=== PATIENT | female | born 1955 | race Caucasian/White ===

== ENCOUNTER 2016-11-21 17:00 | Emergency (ER) | payer SELFPAY ==
[~2016-11-21] VITALS: Ht 167.6 cm; Wt 68.0 kg
[~2016-11-21 17:00] MED LIST: ALBU0.084
[2016-11-21] MEDS ORDERED: SODIUM CHLORIDE 0.9% 1,000 ML IV ONE (17:30)
[2016-11-21 19:46] LABS: Basophils # (auto) 0 uL; Basophils % (auto) 0.4 % (0.0-2.0); Eosinophils # (auto) 0.2 uL; Eosinophils % (auto) 4.1 % (0.0-7.0); Hematocrit 39.4 % (36.0-46.0); Hemoglobin 13.5 g/dL (12.2-16.2); Lymphocytes # (auto) 2.3 uL; Lymphocytes % (auto) 39.8 % (10.0-50.0); Mean Corpuscular Hemoglobin 33.7 pg (28.0-32.0); Mean Corpuscular Hgb Conc. 34.3 g/dL (32.0-36.0); Mean Corpuscular Volume 98.1 fL (80.0-100.0); Mean Platelet Volume 7.3 fL (7.4-10.4); Monocytes # (auto) 0.6 uL; Monocytes % (auto) 9.4 % (0.0-12.0); Neutrophils # (auto) 2.7 uL; Neutrophils % (auto) 46.3 % (37.0-80.0); Platelet Count (auto) 383 10^3/uL (140-450); Red Cell Distribution Width 13.5 % (11.6-16.0); White Blood Cell 5.9 10^3/uL (4.4-10.8)
[2016-11-21 19:57] LABS: Albumin 3.8 g/dL (3.4-5.0); BUN/Creatinine Ratio 11.4; Bilirubin, Total 0.2 mg/dL (0.2-1.0); Calcium 8.6 mg/dL (8.5-10.1); Potassium 3.6 mmol/L (3.5-5.1); Total Protein 7.1 g/dL (6.4-8.2)
[2016-11-21 21:10] VITALS: BP 126/72
[2016-11-22] MEDS ORDERED: THIAMINE INJ 100 MG, MULTIPLE VITAMIN 10 ML, FOLIC ACID 1 MG, MAGNESIUM SULF SDV 50% 8 ... IV SCH ×5 (12:00)
== END 2016-11-21 21:27 | disposition home or self-care (01) ==
LOC: EDUNIT# 17:00 → ER 17:19
DX: G92 Toxic encephalopathy (principal); R42 Dizziness and giddiness; R51 Headache; F10.120 Alcohol abuse with intoxication, uncomplicated; J45.909 Unspecified asthma, uncomplicated; F17.210 Nicotine dependence, cigarettes, uncomplicated; Z88.0 Allergy status to penicillin; W07.XXXA Fall from chair, initial encounter; Y93.89 Activity, other specified; Y99.8 Other external cause status; Y92.89 Other specified places as the place of occurrence of the external cause
CPT/HCPCS: 36415; 70450; 71020; 72125; 80053; 80320; 85025; 94761; 96365

== ENCOUNTER 2017-06-03 08:25 | Emergency (ER) | payer SELFPAY ==
[~2017-06-03] VITALS: Ht 154.9 cm; Wt 47.2 kg
[2017-06-03 09:43] LABS: Basophils # (auto) 0.1 uL; Eosinophils # (auto) 0.1 uL; Eosinophils % (auto) 1.1 % (0.0-7.0); Lymphocytes # (auto) 1.1 uL; Mean Platelet Volume 7.4 fL (6.9-10.8); Monocytes # (auto) 0.6 uL
[2017-06-03 09:46] LABS: Basophils % (auto) 1.2 % (0.0-2.0); Hematocrit 42.6 % (36.0-46.0); Hemoglobin 14.4 g/dL (12.2-16.2); Lymphocytes % (auto) 22.3 % (10.0-50.0); Mean Corpuscular Hemoglobin 35.7 pg (28.0-32.0); Mean Corpuscular Hgb Conc. 33.9 g/dL (32.0-36.0); Monocytes % (auto) 11.6 % (0.0-12.0); Neutrophils # (auto) 3.1 uL; Neutrophils % (auto) 63.8 % (37.0-80.0); Nucleated Red Blood Cells % 0.2 %; Platelet Count (auto) 259 10^3/uL (140-450); Red Cell Distribution Width 13.1 % (11.8-14.3); White Blood Cell 4.8 10^3/uL (4.4-10.8)
[2017-06-03 09:49] LABS: Mean Corpuscular Volume 104.9 fL (80.0-100.0)
[2017-06-03 10:10] LABS: Albumin 4.2 g/dL (3.4-5.0); Alkaline Phosphatase 139 U/L (45-117); Anion Gap 14 (5-15); Aspartate Aminotransferase 161 U/L (15-37); BUN/Creatinine Ratio 16.7; Bilirubin, Total 1.4 mg/dL (0.2-1.0); Blood Urea Nitrogen 9 mg/dL (7-18); Calcium 9.3 mg/dL (8.5-10.1); Carbon Dioxide 24 mmol/L (21-32); Chloride 100 mmol/L (98-107); GFR African American 147 mL/min; GFR Non-African American 121 mL/min; Glucose 90 mg/dL (74-106); Potassium 3.1 mmol/L (3.5-5.1); Sodium 138 mmol/L (136-145); Total Protein 8.5 g/dL (6.4-8.2)
[2017-06-03] MEDS ORDERED: SODIUM CHLORIDE 0.9% 1,000 ML IV ONE (10:38)
[2017-06-03] MEDS ORDERED: LORazepam 2MG/ML-1ML VIAL IV ONE (10:45)
[2017-06-03] MEDS ORDERED: THIAMINE INJ 100 MG, MULTIPLE VITAMIN 10 ML, FOLIC ACID 1 MG, MAGNESIUM SULF SDV 50% 8 ... IV SCH ×5 (12:00)
[2017-06-03 12:32] LABS: Urine RBC None Seen /hpf (0 - 4)
[2017-06-03 12:46] LABS: Urine Bilirubin Negative (Negative); Urine Blood Negative /uL (Negative); Urine Color Yellow (Yellow); Urine Glucose Normal (Normal); Urine Ketone 1+ (Negative); Urine Mucus FEW (None Seen); Urine Nitrite POSITIVE (Negative); Urine Squamous Epithelial Cell FEW /hpf (<5); Urine Urobilinogen Normal (Negative); Urine pH 6.5 (5.0-8.0)
[2017-06-03 13:48] VITALS: BP 130/76
[2017-06-03] MEDS ORDERED: POTASSIUM CHL 10% (20 MEQ/15ML) 15ml ORAL SOLN PO ONE (14:15)
[2017-06-03] MEDS ORDERED: cefTRIAXone 1GM/10ml IVPUSH 10 ML IV ONE (15:45)
== END 2017-06-03 16:21 | disposition home or self-care (01) ==
LOC: ER 08:25
DX: F10.120 Alcohol abuse with intoxication, uncomplicated (principal); N39.0 Urinary tract infection, site not specified; E46 Unspecified protein-calorie malnutrition; F31.9 Bipolar disorder, unspecified; F42.9 Obsessive-compulsive disorder, unspecified; R94.5 Abnormal results of liver function studies; F17.210 Nicotine dependence, cigarettes, uncomplicated; F41.9 Anxiety disorder, unspecified
CPT/HCPCS: 36415; 71020; 80053; 80307; 80320; 81001; 83735; 84443; 85025; 93005; 96361; 96365; 96366; 96375; 99285; J2060; J3411; J3475; J7030

== ENCOUNTER 2017-10-17 17:28 | Emergency (ER) | payer SELFPAY ==
[~2017-10-17] VITALS: Ht 154.9 cm; Wt 47.2 kg
[2017-10-17 19:43] LABS: Eosinophils # (auto) 0.2 uL; Monocytes # (auto) 0.6 uL; Neutrophils # (auto) 2.9 uL; Red Cell Distribution Width 13.7 % (11.8-14.3)
[2017-10-17 19:45] LABS: Basophils # (auto) 0 uL; Basophils % (auto) 0.6 % (0.0-2.0); Eosinophils % (auto) 3.4 % (0.0-7.0); Hematocrit 41.6 % (36.0-46.0); Hemoglobin 14.3 g/dL (12.2-16.2); Lymphocytes # (auto) 3.2 uL; Mean Corpuscular Hemoglobin 35.6 pg (28.0-32.0); Mean Corpuscular Hgb Conc. 34.4 g/dL (32.0-36.0); Mean Corpuscular Volume 103.4 fL (80.0-100.0); Monocytes % (auto) 8.5 % (0.0-12.0); Neutrophils % (auto) 41.5 % (37.0-80.0); Platelet Count (auto) 364 10^3/uL (140-450); Red Blood Cells 4.02 10^6/uL (4.0-5.20)
[2017-10-17 20:29] LABS: Albumin 3.7 g/dL (3.4-5.0); BUN/Creatinine Ratio 8.8; Calcium 8.7 mg/dL (8.5-10.1); Potassium 3.8 mmol/L (3.5-5.1)
[2017-10-17 20:31] LABS: Bilirubin, Total 0.2 mg/dL (0.2-1.0); Total Protein 8.2 g/dL (6.4-8.2)
[2017-10-17 21:41] VITALS: BP 134/97
[2017-10-17] MEDS ORDERED: BACITRACIN-POLYMYXIN B TOPICAL OINT UD TOP ONE (22:57)
[2017-10-17] MEDS ORDERED: BACITRACIN INJ 50000 UNIT VIAL TOP ONE (23:00)
[2017-10-17] MEDS ORDERED: TETANUS-DIPTH-ACEL PERTUSSIS 0.5ML SYRG IM ONE ×2 (23:00→23:07)
== END 2017-10-17 23:17 | disposition home or self-care (01) ==
LOC: EDBD 17:28 → EDUNIT# 17:28 → ER 17:28
DX: S01.81XA Laceration without foreign body of other part of head, initial encounter (principal); J45.909 Unspecified asthma, uncomplicated; F17.210 Nicotine dependence, cigarettes, uncomplicated; Z88.0 Allergy status to penicillin; W19.XXXA Unspecified fall, initial encounter; Y93.89 Activity, other specified; Y99.8 Other external cause status; Y92.89 Other specified places as the place of occurrence of the external cause
CPT/HCPCS: 12013; 36415; 70450; 71046; 72125; 80053; 80320; 85025; 90471; 90715

== ENCOUNTER 2017-10-24 10:22 | Emergency (ER) | payer MEDICAID ==
[~2017-10-24] VITALS: Ht 154.9 cm; Wt 46.7 kg
[2017-10-24 10:40] VITALS: BP 138/76
== END 2017-10-24 12:32 | disposition home or self-care (01) ==
LOC: ER 10:22
DX: S01.81XD Laceration without foreign body of other part of head, subsequent encounter (principal); F17.210 Nicotine dependence, cigarettes, uncomplicated; J45.909 Unspecified asthma, uncomplicated; Z88.0 Allergy status to penicillin; X58.XXXD Exposure to other specified factors, subsequent encounter

== ENCOUNTER 2018-04-02 23:46 | Emergency (ER) | payer SELFPAY ==
[~2018-04-02] VITALS: Ht 152.4 cm; Wt 59.0 kg
[2018-04-02 23:55] VITALS: BP 129/82
== END 2018-04-03 01:15 | disposition left against medical advice (07) ==
LOC: EDBD 23:46 → ER 23:46
DX: S01.91XA Laceration without foreign body of unspecified part of head, initial encounter (principal); S09.90XA Unspecified injury of head, initial encounter; Z53.21 Procedure and treatment not carried out due to patient leaving prior to being seen by health care provider; W19.XXXA Unspecified fall, initial encounter; Y93.89 Activity, other specified; Y99.8 Other external cause status; Y92.89 Other specified places as the place of occurrence of the external cause
CPT/HCPCS: 70450

== ENCOUNTER 2019-02-05 09:23 | Emergency (ER) | payer SELFPAY ==
[~2019-02-05] VITALS: Ht 154.9 cm; Wt 46.7 kg
[2019-02-05 09:32] VITALS: BP 190/100
== END 2019-02-05 10:39 | disposition home or self-care (01) ==
LOC: ER 09:27
DX: N39.0 Urinary tract infection, site not specified (principal); F17.210 Nicotine dependence, cigarettes, uncomplicated; J45.909 Unspecified asthma, uncomplicated; Z88.0 Allergy status to penicillin
CPT/HCPCS: 81002

== ENCOUNTER 2019-02-26 12:37 | Emergency (ER) | payer SELFPAY ==
[~2019-02-26] VITALS: Ht 154.9 cm; Wt 46.3 kg
[2019-02-26 13:05] VITALS: BP 153/93
[2019-02-26] MEDS ORDERED: diphenhdrAMINE HCL 50 MG/1 ML VL IM ONE (14:45)
[2019-02-26] MEDS ORDERED: EPINEPHrine HCL 1 MG/1 ML AMP SC ONE (14:45)
== END 2019-02-26 15:50 | disposition home or self-care (01) ==
LOC: ER 12:37
DX: T78.40XA Allergy, unspecified, initial encounter (principal); F17.210 Nicotine dependence, cigarettes, uncomplicated; J45.909 Unspecified asthma, uncomplicated; Z88.0 Allergy status to penicillin; X58.XXXA Exposure to other specified factors, initial encounter
CPT/HCPCS: 96372; 99283; J0171; J1200

== ENCOUNTER 2019-08-14 07:37 | Emergency (ER) | payer SELFPAY ==
[~2019-08-14] VITALS: Ht 154.9 cm; Wt 45.4 kg
[2019-08-14] MEDS ORDERED: SODIUM CHLORIDE 0.9% 1,000 ML IVB ONE (08:16)
[2019-08-14] MEDS ORDERED: LORazepam 2MG/ML-1ML VIAL IV ONE (09:00)
[2019-08-14 09:16] LABS: Basophils # (auto) 0.1 uL; Basophils % (auto) 0.9 % (0.0-2.0); Eosinophils # (auto) 0.1 uL; Eosinophils % (auto) 1.5 % (0.0-7.0); Hematocrit 43.2 % (36.0-46.0); Hemoglobin 14.8 g/dL (12.2-16.2); Lymphocytes # (auto) 1.5 uL; Lymphocytes % (auto) 23.5 % (10.0-50.0); Mean Corpuscular Hemoglobin 33.8 pg (28.0-32.0); Mean Corpuscular Hgb Conc. 34.3 g/dL (32.0-36.0); Mean Corpuscular Volume 98.6 fL (80.0-100.0); Monocytes # (auto) 0.7 uL; Monocytes % (auto) 10.8 % (0.0-12.0); Neutrophils % (auto) 63.3 % (37.0-80.0); Nucleated Red Blood Cells % 0.1 %; Platelet Count (auto) 183 10^3/uL (140-450); Red Blood Cells 4.38 10^6/uL (4.0-5.20); Red Cell Distribution Width 12.6 % (11.8-14.3); White Blood Cell 6.3 10^3/uL (4.4-10.8)
[2019-08-14 09:31] LABS: Chloride 100 mmol/L (98-107); Potassium 3.5 mmol/L (3.5-5.1); Sodium 134 mmol/L (136-145)
[2019-08-14 09:32] LABS: INR 0.97 (0.9-1.15); Partial Thromboplastin Time 28.2 sec (23.64-32.05)
[2019-08-14 09:42] LABS: Alanine Aminotransferase 43 U/L (13-56); Albumin 3.7 g/dL (3.4-5.0); Alkaline Phosphatase 109 U/L (45-117); Anion Gap 9 (5-15); Aspartate Aminotransferase 58 U/L (15-37); BUN/Creatinine Ratio 8.5; Bilirubin, Total 1.3 mg/dL (0.2-1.0); Blood Alcohol < 3.0 mg/dL (0-5); Blood Urea Nitrogen 7 mg/dL (7-18); Calcium 9.3 mg/dL (8.5-10.1); Carbon Dioxide 25 mmol/L (21-32); GFR African American 90 mL/min; GFR Non-African American 74 mL/min; Glucose 100 mg/dL (74-106); Total Protein 7.8 g/dL (6.4-8.2)
[2019-08-14 11:11] LABS: Urine Bacteria FEW /hpf (None Seen); Urine Blood TRACE /uL (Negative); Urine Hyaline Cast FEW /lpf (0 - 2); Urine Mucus FEW (None Seen); Urine Specific Gravity 1.018 (1.001-1.035); Urine WBC 416 /hpf (0 - 5)
[2019-08-14 11:24] LABS: Amphetamine Screen, Urine NEGATIVE (NEGATIVE); Barbiturate Scree,Urine NEGATIVE (NEGATIVE); Benzodiazephine Screen, Urine NEGATIVE (NEGATIVE); Cannabinoid Screen, Urine NEGATIVE (NEGATIVE); Cocaine Screen, Urine NEGATIVE (NEGATIVE); Opiate Scree,Urine NEGATIVE (NEGATIVE); Phencyclidine Screen, Urine NEGATIVE (NEGATIVE)
[2019-08-14] MEDS ORDERED: cefTRIAXone 1GM/50ML D5W 50 ML IV ONE (12:15)
[2019-08-14 13:00] VITALS: BP 126/77
== END 2019-08-14 14:04 | disposition home or self-care (01) ==
LOC: ER 07:37
DX: N39.0 Urinary tract infection, site not specified (principal); E03.9 Hypothyroidism, unspecified; J45.909 Unspecified asthma, uncomplicated; F41.1 Generalized anxiety disorder; F17.210 Nicotine dependence, cigarettes, uncomplicated
CPT/HCPCS: 36415; 80053; 80307; 80320; 81001; 83735; 84443; 84484; 85025; 85610; 85730; 93005; 96365; 96375; 99284; J0696; J2060; J7030

== ENCOUNTER → 2019-11-05 | Emergency (ER) | payer SELFPAY ==
[~2019-11-05] VITALS: Ht 154.9 cm; Wt 44.5 kg
[~2019-11-05] MED LIST changes: +SODIUM CHLORIDE 0.9% 1,000 ML IV ONE
[2019-11-05 14:24] LABS: Basophils # (auto) 0 10 ^3/uL (0-0.2); Basophils % (auto) 0.9 % (0.0-2.0); Eosinophils # (auto) 0.1 10 ^3/uL (0-0.8); Eosinophils % (auto) 2.8 % (0.0-7.0); Hematocrit 39.1 % (36.0-46.0); Hemoglobin 13.4 g/dL (12.2-16.2); Lymphocytes # (auto) 2.5 10 ^3/uL (0.4-5.4); Mean Corpuscular Hemoglobin 33.3 pg (28.0-32.0); Mean Corpuscular Hgb Conc. 34.3 g/dL (32.0-36.0); Mean Corpuscular Volume 97.1 fL (80.0-100.0); Monocytes # (auto) 0.5 10 ^3/uL (0-1.3); Monocytes % (auto) 9.5 % (0.0-12.0); Neutrophils # (auto) 1.7 10 ^3/uL (1.6-8.6); Neutrophils % (auto) 34.8 % (37.0-80.0); Nucleated Red Blood Cells % 0.1 %; Platelet Count (auto) 274 10^3/uL (140-450); Red Blood Cells 4.03 10^6/uL (4.0-5.20); Red Cell Distribution Width 15.5 % (11.8-14.3); White Blood Cell 4.8 10^3/uL (4.4-10.8)
[2019-11-05 14:44] LABS: Albumin 3.6 g/dL (3.4-5.0); Anion Gap 10 (5-15); Blood Urea Nitrogen 4 mg/dL (7-18); Calcium 8.2 mg/dL (8.5-10.1); Carbon Dioxide 22 mmol/L (21-32); Chloride 99 mmol/L (98-107); Glucose 78 mg/dL (74-106); Potassium 3.8 mmol/L (3.5-5.1); Sodium 131 mmol/L (136-145)
[2019-11-05 14:52] LABS: Alanine Aminotransferase 48 U/L (13-56); Alkaline Phosphatase 93 U/L (45-117); Aspartate Aminotransferase 57 U/L (15-37); BUN/Creatinine Ratio 8.5; Bilirubin, Total 0.3 mg/dL (0.2-1.0); GFR African American 171 mL/min; GFR Non-African American 141 mL/min; Total Protein 7.3 g/dL (6.4-8.2)
[2019-11-05 15:43] LABS: Urine Bacteria NONE SEEN /hpf (None Seen); Urine Blood Negative /uL (Negative); Urine Specific Gravity 1.003 (1.001-1.035)
[2019-11-05 15:47] LABS: Urine WBC 2 /hpf (0 - 5)
[2019-11-05 16:00] VITALS: BP 125/65
== END | disposition home or self-care (01) ==
LOC: ER 13:37
DX: F10.230 Alcohol dependence with withdrawal, uncomplicated (principal); F32.9 Major depressive disorder, single episode, unspecified; F41.9 Anxiety disorder, unspecified; F17.210 Nicotine dependence, cigarettes, uncomplicated
CPT/HCPCS: 36415; 71046; 80053; 80320; 81001; 83735; 84443; 84484; 85025; 93005

== ENCOUNTER 2019-11-13 14:20 | Emergency (ER) | payer SELFPAY ==
[~2019-11-13] VITALS: Ht 154.9 cm; Wt 45.4 kg
[~2019-11-13 14:20] MED LIST changes: -SODIUM CHLORIDE 0.9% 1,000 ML IV ONE
[2019-11-13 15:22] LABS: Basophils # (auto) 0 10 ^3/uL (0-0.2); Basophils % (auto) 0.9 % (0.0-2.0); Eosinophils # (auto) 0.1 10 ^3/uL (0-0.8); Eosinophils % (auto) 1.4 % (0.0-7.0); Hematocrit 39.6 % (36.0-46.0); Hemoglobin 13.4 g/dL (12.2-16.2); Lymphocytes # (auto) 1.6 10 ^3/uL (0.4-5.4); Lymphocytes % (auto) 30.9 % (10.0-50.0); Mean Corpuscular Hgb Conc. 33.8 g/dL (32.0-36.0); Mean Corpuscular Volume 97.7 fL (80.0-100.0); Monocytes # (auto) 0.6 10 ^3/uL (0-1.3); Monocytes % (auto) 11.6 % (0.0-12.0); Neutrophils # (auto) 2.9 10 ^3/uL (1.6-8.6); Neutrophils % (auto) 55.2 % (37.0-80.0); Nucleated Red Blood Cells % 0.1 %; Platelet Count (auto) 283 10^3/uL (140-450); Red Blood Cells 4.06 10^6/uL (4.0-5.20); Red Cell Distribution Width 14.3 % (11.8-14.3); White Blood Cell 5.3 10^3/uL (4.4-10.8)
[2019-11-13 15:48] LABS: Albumin 3.8 g/dL (3.4-5.0); Calcium 8.7 mg/dL (8.5-10.1); Magnesium 2.6 mg/dL (1.6-2.6); Potassium 3.6 mmol/L (3.5-5.1)
[2019-11-13 15:52] LABS: BUN/Creatinine Ratio 7.6; Bilirubin, Total 0.5 mg/dL (0.2-1.0); Total Protein 7.9 g/dL (6.4-8.2)
[2019-11-13] MEDS ORDERED: LORazepam 2MG/ML-1ML VIAL IV ONE (18:45)
[2019-11-13] MEDS ORDERED: FOLIC ACID 1 MG, MULTIPLE VITAMIN 10 ML, MAGNESIUM SULF SDV 50% 8 MEQ, THIAMINE INJ 100... INJ ONE ×5 (18:45)
[2019-11-13 20:07] LABS: Urine Bacteria MOD /hpf (None Seen); Urine Blood Negative /uL (Negative); Urine Specific Gravity 1.003 (1.001-1.035); Urine WBC 7 /hpf (0 - 5)
[2019-11-13 22:54] VITALS: BP 156/88
== END 2019-11-14 00:24 | disposition home or self-care (01) ==
LOC: ER 14:20
DX: F10.239 Alcohol dependence with withdrawal, unspecified (principal); F10.229 Alcohol dependence with intoxication, unspecified; F41.8 Other specified anxiety disorders; Y90.9 Presence of alcohol in blood, level not specified
CPT/HCPCS: 36415; 80053; 80320; 81001; 83735; 85025; 96365; 96366; 96375; 99284; J2060; J3411; J3475; J7030

== ENCOUNTER 2019-11-29 21:12 | Emergency (ER) | payer MEDICAID ==
[~2019-11-29] VITALS: Ht 154.9 cm; Wt 43.1 kg
[2019-11-29 22:08] LABS: Basophils # (auto) 0.1 10 ^3/uL (0-0.2); Basophils % (auto) 1.9 % (0.0-2.0); Eosinophils # (auto) 0.2 10 ^3/uL (0-0.8); Eosinophils % (auto) 4.4 % (0.0-7.0); Hematocrit 41.3 % (36.0-46.0); Hemoglobin 14.1 g/dL (12.2-16.2); Lymphocytes # (auto) 2.3 10 ^3/uL (0.4-5.4); Lymphocytes % (auto) 42.4 % (10.0-50.0); Mean Corpuscular Hemoglobin 33.4 pg (28.0-32.0); Mean Corpuscular Hgb Conc. 34.2 g/dL (32.0-36.0); Mean Corpuscular Volume 97.9 fL (80.0-100.0); Monocytes # (auto) 0.5 10 ^3/uL (0-1.3); Monocytes % (auto) 8.5 % (0.0-12.0); Neutrophils # (auto) 2.3 10 ^3/uL (1.6-8.6); Neutrophils % (auto) 42.8 % (37.0-80.0); Nucleated Red Blood Cells % 0.1 %; Platelet Count (auto) 361 10^3/uL (140-450); Red Blood Cells 4.21 10^6/uL (4.0-5.20); Red Cell Distribution Width 14.8 % (11.8-14.3); White Blood Cell 5.4 10^3/uL (4.4-10.8)
[2019-11-29] MEDS ORDERED: THIAMINE 100mg/ml INJ (200mg/2ml VIAL) IV ONE (22:15)
[2019-11-29] MEDS ORDERED: FOLIC ACID 1 MG TAB PO ONE (22:15)
[2019-11-29] MEDS ORDERED: MULTIPLE VITAMIN TAB PO ONE (22:15)
[2019-11-29] MEDS ORDERED: SODIUM CHLORIDE 0.9% 1,000 ML IV ONE (22:15)
[2019-11-29 22:23] LABS: Calcium 8.2 mg/dL (8.5-10.1); Magnesium 2.5 mg/dL (1.6-2.6); Potassium 3.7 mmol/L (3.5-5.1)
[2019-11-29 22:24] LABS: Salicylate 3.8 mg/dL (2.8-20.0)
[2019-11-29 22:25] LABS: Acetaminophen < 2.0 ug/mL (10-30)
[2019-11-29 22:27] LABS: BUN/Creatinine Ratio 5.6; Bilirubin, Total 0.3 mg/dL (0.2-1.0); Total Protein 7.9 g/dL (6.4-8.2)
[2019-11-30 05:47] LABS: Urine Bacteria MANY /hpf (None Seen); Urine Blood Negative /uL (Negative); Urine Specific Gravity 1.002 (1.001-1.035); Urine WBC 30 /hpf (0 - 5)
[2019-11-30 06:25] LABS: Amphetamine Screen, Urine NEGATIVE (NEGATIVE); Barbiturate Scree,Urine NEGATIVE (NEGATIVE); Benzodiazephine Screen, Urine POSITIVE (NEGATIVE); Cannabinoid Screen, Urine NEGATIVE (NEGATIVE); Cocaine Screen, Urine NEGATIVE (NEGATIVE); Opiate Scree,Urine NEGATIVE (NEGATIVE); Phencyclidine Screen, Urine NEGATIVE (NEGATIVE)
[2019-11-30] MEDS ORDERED: SODIUM CHLORIDE 0.9% 1,000 ML IV ONE (09:30)
[2019-11-30] MEDS ORDERED: LORazepam 2MG/ML-1ML VIAL IV ONE (10:30)
[2019-11-30] MEDS ORDERED: cefTRIAXone 1GM/50ML D5W 50 ML IV ONE (10:30)
[2019-11-30 12:00] VITALS: BP 162/82
== END 2019-11-30 11:58 | disposition home or self-care (01) ==
LOC: ER 21:12
DX: F10.239 Alcohol dependence with withdrawal, unspecified (principal); N39.0 Urinary tract infection, site not specified; R74.8 Abnormal levels of other serum enzymes; J45.909 Unspecified asthma, uncomplicated; F17.210 Nicotine dependence, cigarettes, uncomplicated; Z88.2 Allergy status to sulfonamides; Z88.0 Allergy status to penicillin; Y90.9 Presence of alcohol in blood, level not specified
CPT/HCPCS: 36415; 80053; 80307; 80320; 80329; 81001; 83735; 85025; 96365; 96375; 99284; J0696; J2060; J3411

== ENCOUNTER 2020-02-05 15:55 | Emergency (ER) | payer MEDICAID ==
[~2020-02-05] VITALS: Ht 154.9 cm; Wt 40.4 kg
[2020-02-05] MEDS ORDERED: methylPREDNISolone SOD SUCC 125 MG/2 ML VL IM ONE (16:30)
[2020-02-05 16:43] VITALS: BP 136/79
== END 2020-02-05 16:46 | disposition home or self-care (01) ==
LOC: ER 15:55
DX: S60.461A Insect bite (nonvenomous) of left index finger, initial encounter (principal); J45.909 Unspecified asthma, uncomplicated; F17.210 Nicotine dependence, cigarettes, uncomplicated; Z88.0 Allergy status to penicillin; W57.XXXA Bitten or stung by nonvenomous insect and other nonvenomous arthropods, initial encounter; Y93.89 Activity, other specified; Y99.8 Other external cause status
CPT/HCPCS: 96372; 99283; J2930

== ENCOUNTER 2022-12-03 18:19 | Inpatient (IN) | payer MEDICAID ==
[~2022-12-03] VITALS: Ht 154.9 cm; Wt 54.0 kg
[2022-12-04] VITALS (68 sets, daily range): BP systolic 121–161; BP diastolic 53–86
[2022-12-04 00:27] LABS: Basophils # (auto) 0.1 10 ^3/uL (0-0.2); Lymphocytes # (auto) 2.2 10 ^3/uL (0.4-5.4); Red Blood Cells 1.83 10^6/uL (4.0-5.20)
[2022-12-04 00:29] LABS: Basophils % (auto) 0.8 % (0.0-2.0); Eosinophils # (auto) 0 10 ^3/uL (0-0.8); Eosinophils % (auto) 0.3 % (0.0-7.0); Hematocrit 15.5 % (36.0-46.0); Mean Corpuscular Hemoglobin 28.7 pg (28.0-32.0); Mean Corpuscular Hgb Conc. 33.9 g/dL (32.0-36.0); Mean Corpuscular Volume 84.5 fL (80.0-100.0); Monocytes # (auto) 1.3 10 ^3/uL (0-1.3); Neutrophils # (auto) 6.9 10 ^3/uL (1.6-8.6); Neutrophils % (auto) 65.9 % (37.0-80.0); Red Cell Distribution Width 16.3 % (11.8-14.3); White Blood Cell 10.4 10^3/uL (4.4-10.8)
[2022-12-04 00:37] LABS: Hemoglobin 5.3 g/dL (12.2-16.2)
[2022-12-04 00:44] LABS: INR 0.97 (0.9-1.15); Partial Thromboplastin Time 27.6 sec (24.6-33.4)
[2022-12-04 00:46] LABS: Albumin 2.7 g/dL (3.4-5.0); BUN/Creatinine Ratio 22.7 (10.0-20.0); Calcium 8.4 mg/dL (8.5-10.1); Magnesium 1.8 mg/dL (1.6-2.6); Potassium 3.1 mmol/L (3.5-5.1)
[2022-12-04 00:48] LABS: Bilirubin, Total 0.3 mg/dL (0.2-1.0); Total Protein 6.7 g/dL (6.4-8.2)
[2022-12-04] MEDS ORDERED: MORPHINE SULFATE INJ 2 MG/ml SYRG IV PRN (06:00)
[2022-12-04] MEDS ORDERED: SODIUM CHLORIDE 0.9% 1,000 ML IV SCH (06:00)
[2022-12-04] MEDS ORDERED: ATOR-47 PO (06:06)
[2022-12-04] MEDS ORDERED: GABA-339 PO (06:06)
[2022-12-04] MEDS ORDERED: DILT-100 PO (06:06)
[2022-12-04] MEDS ORDERED: BUSP15TA90 PO (06:06)
[2022-12-04] MEDS: POTASSIUM CHL 20MEQ/100ML 100 ML IV SCH ×2 (06:44→08:00)
[2022-12-04 08:11] LABS: Basophils # (auto) 0.1 10 ^3/uL (0-0.2); Eosinophils # (auto) 0.1 10 ^3/uL (0-0.8); Lymphocytes # (auto) 1.3 10 ^3/uL (0.4-5.4); Monocytes # (auto) 1.3 10 ^3/uL (0-1.3); Neutrophils # (auto) 6.1 10 ^3/uL (1.6-8.6); White Blood Cell 8.8 10^3/uL (4.4-10.8)
[2022-12-04 08:13] LABS: Basophils % (auto) 0.7 % (0.0-2.0); Eosinophils % (auto) 0.8 % (0.0-7.0); Hematocrit 20.1 % (36.0-46.0); Lymphocytes % (auto) 14.8 % (10.0-50.0); Mean Corpuscular Hemoglobin 28.6 pg (28.0-32.0); Mean Corpuscular Hgb Conc. 33.7 g/dL (32.0-36.0); Mean Corpuscular Volume 84.6 fL (80.0-100.0); Monocytes % (auto) 14.7 % (0.0-12.0); Nucleated Red Blood Cells % 0.1 %; Red Blood Cells 2.37 10^6/uL (4.0-5.20); Red Cell Distribution Width 16.1 % (11.8-14.3)
[2022-12-04 08:20] LABS: Hemoglobin 6.8 g/dL (12.2-16.2)
[2022-12-04] MEDS: busPIRone HCL 10 MG TAB PO SCH (10:00)
[2022-12-04] MEDS: GABAPENTIN 300 MG CAP PO SCH (10:00)
[2022-12-04] MEDS: dilTIAZem 120MG ER CAP PO SCH (10:00)
[2022-12-04] MEDS ORDERED: ENOXAPARIN SOD 40 MG/0.4 ML SYRINGE SC SCH (10:00)
[2022-12-04] MEDS ORDERED: D5W 5% 1,000 ML IV SCH (13:15)
[2022-12-04] MEDS: D5W/SOD CHLO 0.9% 1,000 ML IV SCH (13:30)
[2022-12-04] MEDS: PANTOPRAZOLE 40mg/50ML NS AE 50 ML IV SCH ×3 (13:43→21:21)
[2022-12-04] MEDS ORDERED: PANT40TA2 PO (14:02)
[2022-12-04] MEDS ORDERED: POTA10TA51 PO (14:02)
[2022-12-04] MEDS ORDERED: TICA90TA PO (14:02)
[2022-12-04] MEDS ORDERED: ASPI-543 PO (14:02)
[2022-12-04] MEDS ORDERED: FURO40TA4 PO (14:02)
[2022-12-04] MEDS ORDERED: METO25TA5 PO (14:02)
[2022-12-04 19:26] LABS: Eosinophils # (auto) 0.1 10 ^3/uL (0-0.8); Hemoglobin 8.5 g/dL (12.2-16.2); Lymphocytes % (auto) 17.7 % (10.0-50.0); Red Cell Distribution Width 15.1 % (11.8-14.3)
[2022-12-04 19:28] LABS: Basophils # (auto) 0 10 ^3/uL (0-0.2); Basophils % (auto) 0.6 % (0.0-2.0); Eosinophils % (auto) 1.1 % (0.0-7.0); Hematocrit 24.4 % (36.0-46.0); Lymphocytes # (auto) 1.6 10 ^3/uL (0.4-5.4); Mean Corpuscular Hemoglobin 29.9 pg (28.0-32.0); Mean Corpuscular Hgb Conc. 34.6 g/dL (32.0-36.0); Mean Corpuscular Volume 86.5 fL (80.0-100.0); Monocytes # (auto) 1.3 10 ^3/uL (0-1.3); Monocytes % (auto) 15.2 % (0.0-12.0); Neutrophils # (auto) 5.8 10 ^3/uL (1.6-8.6); Neutrophils % (auto) 65.4 % (37.0-80.0); Nucleated Red Blood Cells % 0.1 %; Red Blood Cells 2.82 10^6/uL (4.0-5.20); White Blood Cell 8.8 10^3/uL (4.4-10.8)
[2022-12-05] VITALS (82 sets, daily range): BP systolic 118–173; BP diastolic 41–91
[2022-12-05] MEDS: PANTOPRAZOLE 40mg/50ML NS AE 50 ML IV SCH ×4 (03:04→17:35)
[2022-12-05 05:15] LABS: Eosinophils # (auto) 0.2 10 ^3/uL (0-0.8); Eosinophils % (auto) 2.3 % (0.0-7.0); Lymphocytes # (auto) 1.3 10 ^3/uL (0.4-5.4); Neutrophils # (auto) 5.3 10 ^3/uL (1.6-8.6); Nucleated Red Blood Cells % 0.1 %; White Blood Cell 8.1 10^3/uL (4.4-10.8)
[2022-12-05 05:17] LABS: Basophils # (auto) 0.1 10 ^3/uL (0-0.2); Basophils % (auto) 0.7 % (0.0-2.0); Hematocrit 22.4 % (36.0-46.0); Hemoglobin 7.8 g/dL (12.2-16.2); Lymphocytes % (auto) 15.5 % (10.0-50.0); Mean Corpuscular Hemoglobin 30.1 pg (28.0-32.0); Mean Corpuscular Hgb Conc. 34.9 g/dL (32.0-36.0); Mean Corpuscular Volume 86.3 fL (80.0-100.0); Monocytes # (auto) 1.3 10 ^3/uL (0-1.3); Neutrophils % (auto) 65.5 % (37.0-80.0); Red Cell Distribution Width 15.1 % (11.8-14.3)
[2022-12-05 05:24] LABS: Albumin 2.5 g/dL (3.4-5.0); Calcium 8.3 mg/dL (8.5-10.1); Magnesium 2.4 mg/dL (1.6-2.6); Potassium 3.1 mmol/L (3.5-5.1)
[2022-12-05 05:29] LABS: BUN/Creatinine Ratio 23.4 (10.0-20.0); Bilirubin, Total 0.6 mg/dL (0.2-1.0); Total Protein 5.8 g/dL (6.4-8.2)
[2022-12-05] MEDS: D5W/SOD CHLO 0.9% 1,000 ML IV SCH (06:05)
[2022-12-05] MEDS: GABAPENTIN 300 MG CAP PO SCH (07:22)
[2022-12-05] MEDS: dilTIAZem 120MG ER CAP PO SCH (07:22)
[2022-12-05] MEDS: busPIRone HCL 10 MG TAB PO SCH (07:22)
[2022-12-05] MEDS ORDERED: POTASSIUM CHL 20 Meq TABLET PO ONE (09:30)
[2022-12-05] MEDS ORDERED: POTASSIUM CHL 20MEQ/100ML 100 ML IV ONE (09:30)
[2022-12-05] MEDS ORDERED: ENOXAPARIN SOD 30 MG/0.3 ML SYRINGE SC SCH (10:00)
[2022-12-05 12:55] LABS: Hemoglobin 7.8 g/dL (12.2-16.2)
[2022-12-05] MEDS: SODIUM FERR GLUC 62.5MG/5ML 125 MG in SODIUM CHL 0.9% 100 ML IV SCH (14:48)
[2022-12-05] MEDS ORDERED: BISACODYL 10 MG RECT SUPP PR ONE ×2 (16:00→17:30)
[2022-12-05 21:51] LABS: Hematocrit 24.7 % (36.0-46.0)
[2022-12-06] VITALS (28 sets, daily range): BP systolic 110–156; BP diastolic 44–71
[2022-12-06] MEDS: PANTOPRAZOLE 40mg/50ML NS AE 50 ML IV SCH ×5 (00:08→22:38)
[2022-12-06] MEDS: D5W/SOD CHLO 0.9% 1,000 ML IV SCH ×2 (00:09→21:01)
[2022-12-06 05:03] LABS: Basophils # (auto) 0.1 10 ^3/uL (0-0.2); Eosinophils # (auto) 0.3 10 ^3/uL (0-0.8)
[2022-12-06 05:06] LABS: Basophils % (auto) 0.5 % (0.0-2.0); Lymphocytes # (auto) 1.5 10 ^3/uL (0.4-5.4); Lymphocytes % (auto) 15.8 % (10.0-50.0); Mean Corpuscular Hemoglobin 28.9 pg (28.0-32.0); Mean Corpuscular Hgb Conc. 33.3 g/dL (32.0-36.0); Mean Corpuscular Volume 86.9 fL (80.0-100.0); Monocytes # (auto) 1.3 10 ^3/uL (0-1.3); Monocytes % (auto) 13.9 % (0.0-12.0); Neutrophils # (auto) 6.3 10 ^3/uL (1.6-8.6); Neutrophils % (auto) 66.8 % (37.0-80.0); Nucleated Red Blood Cells % 0.1 %; Red Blood Cells 2.42 10^6/uL (4.0-5.20); Red Cell Distribution Width 15.5 % (11.8-14.3); White Blood Cell 9.5 10^3/uL (4.4-10.8)
[2022-12-06 05:17] LABS: Calcium 8.1 mg/dL (8.5-10.1); Potassium 3.9 mmol/L (3.5-5.1)
[2022-12-06 05:20] LABS: Albumin 2.1 g/dL (3.4-5.0); BUN/Creatinine Ratio 12.2 (10.0-20.0); Magnesium 1.8 mg/dL (1.6-2.6)
[2022-12-06 05:23] LABS: Bilirubin, Total 0.4 mg/dL (0.2-1.0); Total Protein 5.5 g/dL (6.4-8.2)
[2022-12-06] MEDS: dilTIAZem 120MG ER CAP PO SCH (07:32)
[2022-12-06] MEDS: GABAPENTIN 300 MG CAP PO SCH (07:32)
[2022-12-06] MEDS: busPIRone HCL 10 MG TAB PO SCH (07:32)
[2022-12-06] MEDS: SODIUM FERR GLUC 62.5MG/5ML 125 MG in SODIUM CHL 0.9% 100 ML IV SCH (12:45)
[2022-12-06] MEDS: METOPROLOL TARTRATE 25 MG TAB PO SCH ×2 (13:05→20:57)
[2022-12-06 17:19] LABS: Hematocrit 24.7 % (36.0-46.0); Hemoglobin 8.3 g/dL (12.2-16.2)
[2022-12-07] VITALS (20 sets, daily range): BP systolic 121–145; BP diastolic 46–83
[2022-12-07] MEDS: PANTOPRAZOLE 40mg/50ML NS AE 50 ML IV SCH ×5 (04:02→20:48)
[2022-12-07 05:23] LABS: Albumin 2.2 g/dL (3.4-5.0); Magnesium 1.8 mg/dL (1.6-2.6); Potassium 3.7 mmol/L (3.5-5.1)
[2022-12-07 05:27] LABS: BUN/Creatinine Ratio 9.5 (10.0-20.0); Bilirubin, Total 0.5 mg/dL (0.2-1.0); Total Protein 5.3 g/dL (6.4-8.2)
[2022-12-07 05:39] LABS: Eosinophils # (auto) 0.3 10 ^3/uL (0-0.8); Lymphocytes # (auto) 1.5 10 ^3/uL (0.4-5.4)
[2022-12-07 05:40] LABS: Basophils # (auto) 0.1 10 ^3/uL (0-0.2); Basophils % (auto) 0.6 % (0.0-2.0); Eosinophils % (auto) 3.2 % (0.0-7.0); Lymphocytes % (auto) 16.2 % (10.0-50.0); Mean Corpuscular Hemoglobin 30.1 pg (28.0-32.0); Mean Corpuscular Hgb Conc. 33.6 g/dL (32.0-36.0); Mean Corpuscular Volume 89.5 fL (80.0-100.0); Monocytes # (auto) 1.1 10 ^3/uL (0-1.3); Monocytes % (auto) 12.7 % (0.0-12.0); Neutrophils # (auto) 6.1 10 ^3/uL (1.6-8.6); Neutrophils % (auto) 67.3 % (37.0-80.0); Nucleated Red Blood Cells % 0.1 %; Red Blood Cells 2.68 10^6/uL (4.0-5.20); Red Cell Distribution Width 15.3 % (11.8-14.3)
[2022-12-07] MEDS: METOPROLOL TARTRATE 25 MG TAB PO SCH ×3 (05:57→21:41)
[2022-12-07] MEDS: D5W/SOD CHLO 0.9% 1,000 ML IV SCH ×2 (08:10→16:41)
[2022-12-07] MEDS: dilTIAZem 120MG ER CAP PO SCH (10:37)
[2022-12-07] MEDS: GABAPENTIN 300 MG CAP PO SCH (10:39)
[2022-12-07] MEDS: busPIRone HCL 10 MG TAB PO SCH (11:42)
[2022-12-07] MEDS: SODIUM FERR GLUC 62.5MG/5ML 125 MG in SODIUM CHL 0.9% 100 ML IV SCH (16:08)
[2022-12-08] MEDS: PANTOPRAZOLE 40mg/50ML NS AE 50 ML IV SCH ×4 (02:17→18:19)
[2022-12-08 05:00] VITALS: BP 120/64
[2022-12-08] MEDS: METOPROLOL TARTRATE 25 MG TAB PO SCH ×3 (06:02→21:28)
[2022-12-08 06:07] LABS: Hematocrit 23.6 % (36.0-46.0)
[2022-12-08 09:00] VITALS: BP 118/65
[2022-12-08] MEDS: GABAPENTIN 300 MG CAP PO SCH (10:22)
[2022-12-08] MEDS: dilTIAZem 120MG ER CAP PO SCH (10:22)
[2022-12-08] MEDS: busPIRone HCL 10 MG TAB PO SCH (10:23)
[2022-12-08 13:00] VITALS: BP 118/59
[2022-12-08] MEDS: SODIUM FERR GLUC 62.5MG/5ML 125 MG in SODIUM CHL 0.9% 100 ML IV SCH (13:53)
[2022-12-08] MEDS ORDERED: BISACODYL 10 MG RECT SUPP PR ONE (14:00)
[2022-12-08 17:00] VITALS: BP 116/70
[2022-12-08] MEDS: D5W/SOD CHLO 0.9% 1,000 ML IV SCH (18:20)
[2022-12-08 22:00] VITALS: BP 134/65
[2022-12-08] MEDS ORDERED: SENNA 8.6 MG TAB PO SCH (22:00)
[2022-12-09] MEDS: PANTOPRAZOLE 40mg/50ML NS AE 50 ML IV SCH ×3 (00:02→10:07)
[2022-12-09 05:00] VITALS: BP 140/68
[2022-12-09 05:51] LABS: Hematocrit 24.4 % (36.0-46.0)
[2022-12-09 05:54] LABS: Hemoglobin 8.2 g/dL (12.2-16.2)
[2022-12-09] MEDS: METOPROLOL TARTRATE 25 MG TAB PO SCH ×2 (05:54→14:11)
[2022-12-09 06:15] LABS: BUN/Creatinine Ratio 5.4 (10.0-20.0); Calcium 7.8 mg/dL (8.5-10.1); Potassium 3.4 mmol/L (3.5-5.1)
[2022-12-09 10:07] VITALS: BP 133/48
[2022-12-09] MEDS: dilTIAZem 120MG ER CAP PO SCH (10:09)
[2022-12-09] MEDS: GABAPENTIN 300 MG CAP PO SCH (10:09)
[2022-12-09] MEDS: busPIRone HCL 10 MG TAB PO SCH (10:09)
[2022-12-09] MEDS: D5W/SOD CHLO 0.9% 1,000 ML IV SCH (10:09)
[2022-12-09] MEDS ORDERED: SUCRALFATE 1 GM TAB PO SCH (11:30)
[2022-12-09] MEDS: SODIUM FERR GLUC 62.5MG/5ML 125 MG in SODIUM CHL 0.9% 100 ML IV SCH (12:00)
[2022-12-09] MEDS ORDERED: PANT40TA2 PO (12:13)
[2022-12-09] MEDS ORDERED: METO25TA5 PO (12:13)
[2022-12-09] MEDS ORDERED: SUCR1SUS26 PO (12:13)
[2022-12-09] MEDS ORDERED: POTASSIUM CHL 20 Meq TABLET PO ONE (13:00)
[2022-12-09 14:58] VITALS: BP 134/55
[2022-12-09 16:22] VITALS: BP 128/56
[2022-12-09 17:24] VITALS: BP 133/65
[2022-12-09] MEDS ORDERED: PANTOPRAZOLE 40 MG TAB PO SCH (22:00)
[2022-12-10] MEDS ORDERED: EPINEPHrine HCL 1 MG/10 ML SYRG ONE (00:18)
[2022-12-10] MEDS ORDERED: NOREPINEPHRINE 8 MG/250ML KIT 250 ML IV ONE (00:27)
[2022-12-10] MEDS ORDERED: DOBUTamine 1000MCG/ML 250 ML IV ONE (00:32)
[2022-12-10] MEDS ORDERED: MIDAZOLAM DRIP 50 mg/50mL 50 ML IV ONE (01:20)
[2022-12-10] MEDS ORDERED: POTA-228 PO (09:20)
[2022-12-10] MEDS ORDERED: METO25TA5 PO (09:20)
[2022-12-10] MEDS ORDERED: FURO1TAB31 PO (09:20)
[2022-12-10] MEDS ORDERED: GABA-1250 PO (09:20)
== END 2022-12-09 18:54 | disposition home or self-care (01) | DRG 253 ==
LOC: EDBD 18:19 → ER 18:19 → TELE 12-04 06:00 → DOU IN ICU 12-04 08:16 → TELE-EAST 12-07 18:04
PROVIDERS: ADMIT Internal Medicine; ATTEND Hospitalist
PROC: 30233N1 Transfusion of Nonautologous Red Blood Cells into Peripheral Vein, Percutaneous Approach (ICD-10-PCS; principal; 2022-12-04)
PROC: 05HA33Z Insertion of Infusion Device into Left Brachial Vein, Percutaneous Approach (ICD-10-PCS; 2022-12-04)
PROC: B54NZZA Ultrasonography of Left Upper Extremity Veins, Guidance (ICD-10-PCS; 2022-12-04)
DX: K92.2 Gastrointestinal hemorrhage, unspecified (principal); E83.51 Hypocalcemia; E87.8 Other disorders of electrolyte and fluid balance, not elsewhere classified; E87.1 Hypo-osmolality and hyponatremia; E86.0 Dehydration; I48.91 Unspecified atrial fibrillation; E88.09 Other disorders of plasma-protein metabolism, not elsewhere classified; D64.9 Anemia, unspecified; D75.839 Thrombocytosis, unspecified; E86.1 Hypovolemia; E87.6 Hypokalemia; F32.A Depression, unspecified; F41.9 Anxiety disorder, unspecified; M81.0 Age-related osteoporosis without current pathological fracture; M53.3 Sacrococcygeal disorders, not elsewhere classified; K59.00 Constipation, unspecified; J43.9 Emphysema, unspecified; F17.210 Nicotine dependence, cigarettes, uncomplicated; I25.10 Atherosclerotic heart disease of native coronary artery without angina pectoris; J45.909 Unspecified asthma, uncomplicated; Z95.5 Presence of coronary angioplasty implant and graft; Z88.0 Allergy status to penicillin; Z88.2 Allergy status to sulfonamides
CPT/HCPCS: 36415; 80048; 80053; 82270; 83690; 83735; 83880; 84443; 84484; 85014; 85018; 85025; 85610; 85730; 86850; 86900; 86901; 86920; 87081; 93005; 93306; 97110; 97116; 97163; 97530; 99291; G0378; J3480; J7042

== ENCOUNTER 2022-12-10 00:10 | Inpatient (IN) | payer MEDICAID ==
[~2022-12-10] VITALS: Ht 157.5 cm; Wt 58.0 kg
[2022-12-10] VITALS (91 sets, daily range): BP systolic 76–211; BP diastolic 46–180
[~2022-12-10 00:10] MED LIST changes: +ASPI-543 PO; +ATOR-47 PO; +BUSP15TA90 PO; +DILT-100 PO; +FURO40TA4 PO; +GABA-339 PO; +METO25TA5 PO; +PANT40TA2 PO; +POTA10TA51 PO; +SUCR1SUS26 PO; +TICA90TA PO
[2022-12-10 01:09] LABS: White Blood Cell 9.4 10^3/uL (4.4-10.8)
[2022-12-10 01:10] LABS: Hematocrit 24.8 % (36.0-46.0); Hemoglobin 7.7 g/dL (12.2-16.2); Mean Corpuscular Hemoglobin 30.5 pg (28.0-32.0); Mean Corpuscular Hgb Conc. 31.2 g/dL (32.0-36.0); Mean Corpuscular Volume 97.9 fL (80.0-100.0); Red Blood Cells 2.53 10^6/uL (4.0-5.20); Red Cell Distribution Width 17.3 % (11.8-14.3)
[2022-12-10] MEDS: EPINEPHrine HCL 250 ML IV SCH ×2 (01:12→15:20)
[2022-12-10] MEDS: DOBUTamine 1000MCG/ML 250 ML IV SCH ×2 (01:14→20:57)
[2022-12-10] MEDS: NOREPINEPHRINE 8 MG/250ML KIT 250 ML IV SCH ×2 (01:14→10:38)
[2022-12-10] MEDS ORDERED: ANGIOMAX 250 MG VIAL IV ONE (01:16)
[2022-12-10] MEDS ORDERED: SODIUM CHL 0.9% 50 ML ONE (01:16)
[2022-12-10 01:18] LABS: Basophils % (manual) 0 (0.0-2.0); Blast Cells 0; Eosinophils % (manual) 0 (0-7); Metamyelocytes % 0; Myelocytes % 0; Promyelocytes % 0; Reactive Lymphocytes 0
[2022-12-10] MEDS ORDERED: LIDOCAINE 2%HCL (LOCAL ANESTH.) INJ 20ML MDV ONE (01:20)
[2022-12-10] MEDS ORDERED: IODIXANOL 320MG/ML 100ML BTL IV ONE (01:20)
[2022-12-10 01:21] LABS: Albumin 1.6 g/dL (3.4-5.0); BUN/Creatinine Ratio 10.1 (10.0-20.0); Calcium 10.8 mg/dL (8.5-10.1); Magnesium 2.2 mg/dL (1.6-2.6); Potassium 5.2 mmol/L (3.5-5.1)
[2022-12-10 01:24] LABS: Bilirubin, Total 0.2 mg/dL (0.2-1.0); Total Protein 4.3 g/dL (6.4-8.2)
[2022-12-10] MEDS: MIDAZOLAM DRIP 50 mg/50mL 50 ML IV SCH ×3 (01:30→12:31)
[2022-12-10 01:35] LABS: INR 1.18 (0.9-1.15); Partial Thromboplastin Time 42.7 sec (24.6-33.4)
[2022-12-10 01:52] LABS: Band Neutrophils % (manual) 4; Monocytes % (manual) 8 (0-12)
[2022-12-10 01:53] LABS: Lymphocytes % (manual) 34 (10.0-50.0)
[2022-12-10] MEDS ORDERED: PHENYLEPHRINE IV 250 ML IV ONE (02:04)
[2022-12-10] MEDS ORDERED: VASOPRESSIN 20 UNIT/ML ONE (02:22)
[2022-12-10 02:24] LABS: Alcohol, Urine < 3.0 mg/dL (0-10); Amphetamine Screen, Urine NEGATIVE (NEGATIVE); Barbiturate Scree,Urine NEGATIVE (NEGATIVE); Benzodiazephine Screen, Urine NEGATIVE (NEGATIVE); Cannabinoid Screen, Urine NEGATIVE (NEGATIVE); Cocaine Screen, Urine NEGATIVE (NEGATIVE); Phencyclidine Screen, Urine NEGATIVE (NEGATIVE)
[2022-12-10 02:37] LABS: Urine Bacteria FEW /hpf (None Seen); Urine Blood Negative /uL (Negative); Urine Specific Gravity 1.008 (1.001-1.035); Urine WBC 4 /hpf (0 - 5)
[2022-12-10 02:42] LABS: Opiate Scree,Urine NEGATIVE (NEGATIVE)
[2022-12-10] MEDS ORDERED: MORPHINE SULFATE INJ 2 MG/ml SYRG IV PRN (03:00)
[2022-12-10 04:16] LABS: Basophils # (auto) 0 10 ^3/uL (0-0.2); Eosinophils % (auto) 0.7 % (0.0-7.0); Lymphocytes # (auto) 1.3 10 ^3/uL (0.4-5.4); Monocytes # (auto) 0.2 10 ^3/uL (0-1.3); Monocytes % (auto) 2.2 % (0.0-12.0); Neutrophils # (auto) 6.1 10 ^3/uL (1.6-8.6)
[2022-12-10 04:19] LABS: Basophils % (auto) 0.5 % (0.0-2.0); Eosinophils # (auto) 0.1 10 ^3/uL (0-0.8); Hematocrit 23.6 % (36.0-46.0); Hemoglobin 7.8 g/dL (12.2-16.2); Lymphocytes % (auto) 16.5 % (10.0-50.0); Mean Corpuscular Hemoglobin 30.7 pg (28.0-32.0); Mean Corpuscular Hgb Conc. 33.2 g/dL (32.0-36.0); Mean Corpuscular Volume 92.2 fL (80.0-100.0); Neutrophils % (auto) 80.1 % (37.0-80.0); Nucleated Red Blood Cells % 0.1 %; Red Blood Cells 2.56 10^6/uL (4.0-5.20); Red Cell Distribution Width 16.5 % (11.8-14.3); White Blood Cell 7.6 10^3/uL (4.4-10.8)
[2022-12-10 04:20] LABS: INR 1.99 (0.9-1.15)
[2022-12-10 04:28] LABS: Albumin 1.5 g/dL (3.4-5.0); BUN/Creatinine Ratio 14.4 (10.0-20.0); Calcium 8.3 mg/dL (8.5-10.1); Potassium 4.1 mmol/L (3.5-5.1)
[2022-12-10 04:31] LABS: Bilirubin, Total 0.3 mg/dL (0.2-1.0)
[2022-12-10] MEDS: PHENYLEPHRINE IV 250 ML IV SCH ×4 (04:42→10:36)
[2022-12-10] MEDS ORDERED: SODIUM BICARBONATE 50ML VIAL 100 ML in SOD CHL 0.45% 1,000 ML IV SCH ×2 (06:30→09:45)
[2022-12-10] MEDS ORDERED: SODIUM BICARBONATE 8.4 % INJ 50ML VIAL IV ONE ×4 (06:41→23:30)
[2022-12-10] MEDS ORDERED: POTA-228 PO (09:20)
[2022-12-10] MEDS ORDERED: GABA-1250 PO (09:20)
[2022-12-10] MEDS ORDERED: FURO1TAB31 PO (09:20)
[2022-12-10] MEDS ORDERED: METO25TA5 PO (09:20)
[2022-12-10] MEDS ORDERED: ASPirin 81 mg TAB GT SCH (10:00)
[2022-12-10] MEDS ORDERED: CLOPIDOGREL BISULFATE 75 MG TAB GT SCH (10:00)
[2022-12-10] MEDS ORDERED: CLINIMIX PER PHARMACY 0 ML IV SCH (10:45)
[2022-12-10] MEDS ORDERED: FUROSEMIDE INJECTION 100 MG in D5W 5% 100 ML IV SCH (10:45)
[2022-12-10] MEDS: SUCRALFATE 1 GM/10 ML ORAL SUSP NG SCH ×4 (10:56→23:43)
[2022-12-10 11:10] LABS: Magnesium 2.3 mg/dL (1.6-2.6); Phosphorus 4.5 mg/dL (2.5-4.90)
[2022-12-10] MEDS ORDERED: MAGNESIUM SULFATE 1GM/100ML 100 ML IV ONE (11:15)
[2022-12-10] MEDS: PHENYLEPHRINE INJ 80 MG in SODIUM CHL 0.9% 242 ML IV SCH ×2 (12:32→19:34)
[2022-12-10] MEDS: MEROPENEM 1GM IVPB 100 ML IV SCH (15:20)
[2022-12-10] MEDS: NOREPINEPHRINE BITARTRATE 32 MG in SODIUM CHL 0.9% 218 ML IV SCH (15:22)
[2022-12-10 15:29] LABS: Basophils # (auto) 0 10 ^3/uL (0-0.2); Eosinophils # (auto) 0 10 ^3/uL (0-0.8); Eosinophils % (auto) 0.1 % (0.0-7.0); Hemoglobin 7.3 g/dL (12.2-16.2); Monocytes # (auto) 1.2 10 ^3/uL (0-1.3); Neutrophils # (auto) 7.3 10 ^3/uL (1.6-8.6); Nucleated Red Blood Cells % 0.9 %
[2022-12-10 15:31] LABS: Basophils % (auto) 0.3 % (0.0-2.0); Lymphocytes # (auto) 1.2 10 ^3/uL (0.4-5.4); Lymphocytes % (auto) 12.3 % (10.0-50.0); Mean Corpuscular Hemoglobin 29.3 pg (28.0-32.0); Mean Corpuscular Hgb Conc. 30.3 g/dL (32.0-36.0); Mean Corpuscular Volume 96.8 fL (80.0-100.0); Monocytes % (auto) 12.3 % (0.0-12.0); Red Blood Cells 2.48 10^6/uL (4.0-5.20); Red Cell Distribution Width 16.7 % (11.8-14.3); White Blood Cell 9.7 10^3/uL (4.4-10.8)
[2022-12-10] MEDS ORDERED: PANTOPRAZOLE 40 MG/10 ML VIAL INJ IV ONE (16:15)
[2022-12-10] MEDS ORDERED: SODIUM BICARBONATE 50ML VIAL 150 ML in SOD CHL 0.45% 1,000 ML IV SCH (16:15)
[2022-12-10] MEDS: DOPamine 1600MCG/ML D5W 250 ML IV SCH (16:28)
[2022-12-10] MEDS: PANTOPRAZOLE 40mg/50ML NS AE 50 ML IV SCH ×2 (18:11→22:45)
[2022-12-10] MEDS: VASOPRESSIN 20 UNITS in SODIUM CHL 0.9% 99 ML IV SCH (19:34)
[2022-12-10] MEDS ORDERED: AMINO ACID INFUSION IN D10W 1,000 ML IV NR (20:00)
[2022-12-10] MEDS ORDERED: PANTOPRAZOLE 40 MG/10 ML VIAL INJ IV SCH ×2 (22:00)
[2022-12-10] MEDS ORDERED: DEXTROSE 10% 250 ML IV ONE (23:27)
[2022-12-10] MEDS ORDERED: SODIUM BICARBONATE 8.4% INJ 50ML SYRINGE ONE (23:30)
[2022-12-10] MEDS: InsuLIN REG 1unit/0.01ml Soln (100units/ml) SC SCH (23:42)
[2022-12-10] MEDS: ACCU-CHEK COMFORT CURVE STRIP VI SCH (23:42)
[2022-12-11] VITALS (48 sets, daily range): BP systolic 0–104; BP diastolic 28–75
[2022-12-11] MEDS ORDERED: DEXTROSE (50%) 50ML SYRG IV SCH
[2022-12-11] MEDS: DOPamine 1600MCG/ML D5W 250 ML IV SCH ×2 (00:45→06:33)
[2022-12-11 01:24] LABS: Basophils # (auto) 0 10 ^3/uL (0-0.2); Eosinophils # (auto) 0 10 ^3/uL (0-0.8); Eosinophils % (auto) 0.1 % (0.0-7.0); Lymphocytes # (auto) 1.1 10 ^3/uL (0.4-5.4); Nucleated Red Blood Cells % 1.6 %; Red Cell Distribution Width 16.9 % (11.8-14.3)
[2022-12-11 01:26] LABS: Basophils % (auto) 0.1 % (0.0-2.0); Mean Corpuscular Hemoglobin 29.9 pg (28.0-32.0); Mean Corpuscular Hgb Conc. 30.9 g/dL (32.0-36.0); Mean Corpuscular Volume 96.8 fL (80.0-100.0); Monocytes # (auto) 0.4 10 ^3/uL (0-1.3); Monocytes % (auto) 5.7 % (0.0-12.0); Neutrophils # (auto) 4.9 10 ^3/uL (1.6-8.6); Neutrophils % (auto) 77.1 % (37.0-80.0); Red Blood Cells 2.07 10^6/uL (4.0-5.20); White Blood Cell 6.3 10^3/uL (4.4-10.8)
[2022-12-11 01:34] LABS: Calcium 6.4 mg/dL (8.5-10.1); Magnesium 2.1 mg/dL (1.6-2.6); Potassium 4.2 mmol/L (3.5-5.1)
[2022-12-11 01:41] LABS: Hemoglobin 6.2 g/dL (12.2-16.2)
[2022-12-11 01:45] LABS: Bilirubin, Total 0.8 mg/dL (0.2-1.0); Phosphorus 8.2 mg/dL (2.5-4.90); Total Protein 2.7 g/dL (6.4-8.2)
[2022-12-11 01:52] LABS: BUN/Creatinine Ratio 14.6 (10.0-20.0)
[2022-12-11 01:54] LABS: Albumin 0.8 g/dL (3.4-5.0)
[2022-12-11] MEDS: PANTOPRAZOLE 40mg/50ML NS AE 50 ML IV SCH (02:20)
[2022-12-11] MEDS: MEROPENEM 1GM IVPB 100 ML IV SCH (02:21)
[2022-12-11] MEDS: PHENYLEPHRINE INJ 80 MG in SODIUM CHL 0.9% 242 ML IV SCH (02:23)
[2022-12-11] MEDS ORDERED: SODIUM BICARBONATE 8.4% INJ 50ML SYRINGE ONE ×2 (02:29→09:18)
[2022-12-11] MEDS ORDERED: SODIUM BICARBONATE 50ML VIAL 150 ML in SOD CHL 0.45% 1,000 ML IV SCH (02:30)
[2022-12-11] MEDS ORDERED: SODIUM BICARBONATE 8.4 % INJ 50ML VIAL IV ONE (02:30)
[2022-12-11] MEDS: VASOPRESSIN 20 UNITS in SODIUM CHL 0.9% 99 ML IV SCH (04:32)
[2022-12-11] MEDS: EPINEPHrine HCL 250 ML IV SCH (04:33)
[2022-12-11] MEDS: SUCRALFATE 1 GM/10 ML ORAL SUSP NG SCH (05:24)
[2022-12-11] MEDS: ACCU-CHEK COMFORT CURVE STRIP VI SCH (05:24)
[2022-12-11] MEDS: InsuLIN REG 1unit/0.01ml Soln (100units/ml) SC SCH (05:24)
[2022-12-11] MEDS: NOREPINEPHRINE BITARTRATE 32 MG in SODIUM CHL 0.9% 218 ML IV SCH (06:33)
== END 2022-12-11 13:00 | DRG 175 ==
LOC: ER 00:10 → DOU IN ICU 02:56 → ICU CENTRL 03:32
PROVIDERS: ADMIT Specialist; ATTEND Internal Medicine
PROC: 5A1945Z Respiratory Ventilation, 24-96 Consecutive Hours (ICD-10-PCS; principal; 2022-12-10)
PROC: 02703ZZ Dilation of Coronary Artery, One Artery, Percutaneous Approach (ICD-10-PCS; 2022-12-10)
PROC: 5A12012 Performance of Cardiac Output, Single, Manual (ICD-10-PCS; 2022-12-10)
PROC: 0BH17EZ Insertion of Endotracheal Airway into Trachea, Via Natural or Artificial Opening (ICD-10-PCS; 2022-12-10)
PROC: B211YZZ Fluoroscopy of Multiple Coronary Arteries using Other Contrast (ICD-10-PCS; 2022-12-10)
PROC: 02C03ZZ Extirpation of Matter from Coronary Artery, One Artery, Percutaneous Approach (ICD-10-PCS; 2022-12-10)
PROC: 5A12012 Performance of Cardiac Output, Single, Manual (ICD-10-PCS; 2022-12-11)
PROC: 30233N1 Transfusion of Nonautologous Red Blood Cells into Peripheral Vein, Percutaneous Approach (ICD-10-PCS; 2022-12-11)
DX: T82.855A Stenosis of coronary artery stent, initial encounter (principal); I46.9 Cardiac arrest, cause unspecified; J96.00 Acute respiratory failure, unspecified whether with hypoxia or hypercapnia; N17.0 Acute kidney failure with tubular necrosis; I21.3 ST elevation (STEMI) myocardial infarction of unspecified site; E43 Unspecified severe protein-calorie malnutrition; I50.41 Acute combined systolic (congestive) and diastolic (congestive) heart failure; J44.9 Chronic obstructive pulmonary disease, unspecified; Z68.23 Body mass index [BMI] 23.0-23.9, adult; I25.10 Atherosclerotic heart disease of native coronary artery without angina pectoris; F17.210 Nicotine dependence, cigarettes, uncomplicated; Z88.0 Allergy status to penicillin; Z98.61 Coronary angioplasty status; F41.9 Anxiety disorder, unspecified; F32.A Depression, unspecified
CPT/HCPCS: 36415; 36600; 51702; 71045; 80053; 80307; 81001; 82805; 82962; 83036; 83735; 84100; 84443; 84484; 85007; 85025; 85027; 85379; 85610; 85730; 86850; 86900; 86901; 86920; 87070; 87205; 92920; 92950; 92973; 93005; 93454; 94002; 94003; 99152; 99291; C9113; G0378; J0171; J2185; J2250; J7060; Q9967